=== PATIENT | male | born 1955 | race African-American/Black ===

== ENCOUNTER 2022-04-12 10:19 | Inpatient (IN) | payer OTHER, MEDICAID ==
[~2022-04-12] VITALS: Ht 177.8 cm; Wt 74.4 kg
[2022-04-12 12:13] LABS: BASOPHILS % 0.7 % (0.0-2.0); EOSINOPHILS % 0.6 % (0.0-5.0); HEMATOCRIT. 35.6 % (42.0-52.0); HEMOGLOBIN. 11.7 g/dL (14.0-18.0); LYMPHOCYTES % 7.5 % (20.0-50.0); MEAN CORPUSCULAR HEMOGLOBIN 33.8 pg (28.0-32.0); MEAN CORPUSCULAR VOLUME 102.8 fL (80.0-94.0); MEAN PLATELET VOLUME 8.3 fl (7.4-10.4); MONOCYTES % 9.2 % (2.0-8.0); PLATELET 242 x1000/uL (130-400); RED BLOOD CELL COUNT 3.46 mill/uL (4.7-6.1); RED CELL DISTRIBUTION WIDTH 18.1 % (11.6-14.6)
[2022-04-12] MEDS ORDERED: HYDRALAZINE 20MG/ML VIAL IV ONE (12:15)
[2022-04-12 12:16] LABS: CHLORIDE 109 mEq/L (98-107)
[2022-04-12] MEDS ORDERED: DILTIAZEM HCL 125 MG in DEXT 5% WATER 100 ML IV ONE (13:15)
[2022-04-12] MEDS ORDERED: DILTIAZEM 125MG/125ML PMX 125 ML IV SCH (13:30)
[2022-04-12] MEDS ORDERED: NICARDIPINE 100 MG in SODIUM CHLORIDE 0.9% 60 ML IV STA (13:44)
[2022-04-12] MEDS ORDERED: ACETAMINOPHEN 325MG TABLET PO PRN (13:45)
[2022-04-12] MEDS ORDERED: DIPHENHYDRAMINE 50MG/ML VIAL IV PRN (13:45)
[2022-04-12] MEDS ORDERED: DOCUSATE SODIUM 100MG CAPSULE PO PRN (13:45)
[2022-04-12] MEDS ORDERED: TRAMADOL 50MG TABLET PO PRN (13:45)
[2022-04-12] MEDS ORDERED: ONDANSETRON HCL 4MG/2ML INJ IV PRN (13:45)
[2022-04-12] MEDS ORDERED: NITROGLYCERIN 0.4MG TABLET SL SL PRN (13:45)
[2022-04-12] MEDS ORDERED: IPRATROPIUM/ALBUTEROL 0.5-3(2.5)MG/3ML NEB NEB PRN (13:45)
[2022-04-12] MEDS ORDERED: DIAZEPAM 5 MG/ML 2ML CPJ IV PRN (13:45)
[2022-04-12] MEDS ORDERED: ZOLPIDEM TARTRATE 5MG TABLET PO PRN (13:45)
[2022-04-12] MEDS ORDERED: MAGNESIUM/ALUMINUM HYDROXIDE/SIMETHICONE 30ML UDC PO PRN (13:45)
[2022-04-12] MEDS ORDERED: GUAIFENESIN 200MG/10ML SUGAR FREE UDC PO PRN (13:45)
[2022-04-12] MEDS ORDERED: NICARDIPINE 40MG/200ML PREMIX 200 ML IV SCH (14:00)
[2022-04-12 14:06] LABS: ETHANOL BLOOD < 10 mg/dL; TOTAL IRON BINDING CAPACITY 238 ug/dL (250-450)
[2022-04-12 14:31] LABS: HEPATITIS B SURFACE ANTIGEN NEGATIVE
[2022-04-12 14:47] LABS: CREATINE KINASE MB FRACTION 3.1 ng/mL (0.5-3.6)
[2022-04-12 14:56] LABS: *AMPHETAMINES SCREEN URINE NEGATIVE (NEGATIVE); *BARBITURATES SCREEN URINE NEGATIVE (NEGATIVE); *BENZODIAZEPINES SCREEN URINE NEGATIVE (NEGATIVE); *COCAINE SCREEN URINE PRESUMTIVE POSITIVE (NEGATIVE); CANNABINOID URINE SCREEN NEGATIVE (NEGATIVE); METHADONE URINE SCREEN NEGATIVE (NEGATIVE); OPIATES URINE SCREEN NEGATIVE (NEGATIVE); PHENCYCLIDINE URINE SCREEN NEGATIVE (NEGATIVE)
[2022-04-12] MEDS: LEVETIRACETAM 500MG TABLET PO SCH ×2 (15:56→21:08)
[2022-04-12] MEDS: HYDRALAZINE HCL 50MG TABLET PO SCH ×2 (18:22→21:23)
[2022-04-12] MEDS: NIFEDIPINE XL 60MG TAB PO SCH (18:22)
[2022-04-12] MEDS: SEVELAMER CARBONATE 800 MG TABLET PO SCH (18:23)
[2022-04-12] MEDS: ENOXAPARIN 40MG/0.4ML SYR SUBCUT SCH (18:23)
[2022-04-12] MEDS: FAMOTIDINE 20MG TABLET PO SCH (21:08)
[2022-04-12] MEDS: METOPROLOL TARTRATE 25MG TABLET PO SCH (21:08)
[2022-04-12 22:32] VITALS: BP 188/113
[2022-04-13] VITALS (16 sets, daily range): BP systolic 112–190; BP diastolic 65–132
[2022-04-13] MEDS: CLONIDINE 0.1MG TABLET PO PRN ×2 (00:28→23:53)
[2022-04-13 02:15] LABS: CREATINE KINASE MB FRACTION 3.9 ng/mL (0.5-3.6)
[2022-04-13] MEDS: HYDRALAZINE HCL 50MG TABLET PO SCH ×3 (06:00→22:57)
[2022-04-13 06:07] LABS: CHLORIDE 103 mEq/L (98-107)
[2022-04-13 06:17] LABS: PHOSPHORUS 3.2 mg/dL (2.5-4.9)
[2022-04-13 06:34] LABS: BASOPHILS % 0.8 % (0.0-2.0); EOSINOPHILS % 1.2 % (0.0-5.0); HEMATOCRIT. 37.4 % (42.0-52.0); HEMOGLOBIN. 12.4 g/dL (14.0-18.0); LYMPHOCYTES % 9.6 % (20.0-50.0); MEAN CORPUSCULAR HEMOGLOBIN 33.7 pg (28.0-32.0); MEAN CORPUSCULAR VOLUME 101.5 fL (80.0-94.0); MEAN PLATELET VOLUME 7.9 fl (7.4-10.4); MONOCYTES % 11.7 % (2.0-8.0); NEUTROPHILS % 76.7 % (40.0-76.0); PLATELET 240 x1000/uL (130-400); RED BLOOD CELL COUNT 3.69 mill/uL (4.7-6.1); RED CELL DISTRIBUTION WIDTH 17.8 % (11.6-14.6)
[2022-04-13] MEDS: ASPIRIN 81MG EC TABLET PO SCH (08:46)
[2022-04-13] MEDS: SEVELAMER CARBONATE 800 MG TABLET PO SCH ×3 (08:46→17:19)
[2022-04-13] MEDS: NIFEDIPINE XL 60MG TAB PO SCH (08:46)
[2022-04-13] MEDS: METOPROLOL TARTRATE 25MG TABLET PO SCH (08:46)
[2022-04-13] MEDS: ACETAMINOPHEN 325MG TABLET PO PRN ×2 (08:47→22:56)
[2022-04-13] MEDS: LEVETIRACETAM 500MG TABLET PO SCH ×2 (08:47→21:22)
[2022-04-13] MEDS ORDERED: ASPIRIN 325MG EC TABLET PO SCH (09:00)
[2022-04-13] MEDS: CARVEDILOL 12.5MG TABLET PO SCH ×2 (11:41→21:22)
[2022-04-13] MEDS: ISOSORBIDE MONONITRATE 30MG TABLET SR 24HR PO SCH (11:41)
[2022-04-13] MEDS: ENOXAPARIN 40MG/0.4ML SYR SUBCUT SCH (17:19)
[2022-04-13] MEDS ORDERED: NALOXONE HCL 0.4MG/ML VIAL IV PRN (18:15)
[2022-04-13] MEDS: FAMOTIDINE 20MG TABLET PO SCH (21:22)
[2022-04-14] VITALS (12 sets, daily range): BP systolic 119–193; BP diastolic 82–120
[2022-04-14] MEDS: HYDRALAZINE HCL 50MG TABLET PO SCH (06:16)
[2022-04-14 06:23] LABS: HEMOGLOBIN. 12.2 g/dL (14.0-18.0); MEAN CORPUSCULAR HEMOGLOBIN 33.9 pg (28.0-32.0); MEAN CORPUSCULAR VOLUME 102.4 fL (80.0-94.0); MEAN PLATELET VOLUME 7.3 fl (7.4-10.4); PLATELET 247 x1000/uL (130-400); RED BLOOD CELL COUNT 3.61 mill/uL (4.7-6.1); RED CELL DISTRIBUTION WIDTH 17.8 % (11.6-14.6)
[2022-04-14 06:38] LABS: PHOSPHORUS 4.4 mg/dL (2.5-4.9)
[2022-04-14] MEDS ORDERED: CLONIDINE 0.3MG TABLET PO SCH (08:00)
[2022-04-14] MEDS ORDERED: ENOXAPARIN 30MG/0.3ML SYR SUBCUT SCH (09:00)
[2022-04-14 09:02] LABS: NUCLEATED RED BLOOD CELLS 2 /100 WBC; PLATELET ESTIMATE NORMAL
[2022-04-14] MEDS: ASPIRIN 81MG EC TABLET PO SCH (11:15)
[2022-04-14] MEDS: LEVETIRACETAM 500MG TABLET PO SCH (11:16)
[2022-04-14] MEDS: SEVELAMER CARBONATE 800 MG TABLET PO SCH ×2 (11:16→13:00)
[2022-04-14] MEDS: ISOSORBIDE MONONITRATE 30MG TABLET SR 24HR PO SCH (11:16)
[2022-04-14] MEDS: CARVEDILOL 12.5MG TABLET PO SCH (11:16)
[2022-04-14] MEDS: NIFEDIPINE XL 60MG TAB PO SCH (11:17)
[2022-04-14] MEDS ORDERED: HYDRALAZINE HCL 50MG TABLET PO SCH (14:00)
== END 2022-04-14 19:00 | disposition short-term general hospital (02) | DRG 917 ==
LOC: ER 10:19 → 5EST 13:34 → EDBEDREQ 14:05 → EDBEDREQSVC 14:05 → EDBEDREQTM 14:05 → ENRESERV 21:17
PROVIDERS: ADMIT Internal Medicine; ATTEND Internal Medicine
PROC: 5A1D70Z Performance of Urinary Filtration, Intermittent, Less than 6 Hours Per Day (ICD-10-PCS; principal; 2022-04-12)
DX: T40.5X1A Poisoning by cocaine, accidental (unintentional), initial encounter (principal); I21.4 Non-ST elevation (NSTEMI) myocardial infarction; N18.6 End stage renal disease; I16.1 Hypertensive emergency; I13.2 Hypertensive heart and chronic kidney disease with heart failure and with stage 5 chronic kidney disease, or end stage renal disease; Z20.822 Contact with and (suspected) exposure to COVID-19; E87.5 Hyperkalemia; D63.1 Anemia in chronic kidney disease; E78.5 Hyperlipidemia, unspecified; G40.909 Epilepsy, unspecified, not intractable, without status epilepticus; I50.9 Heart failure, unspecified; Z91.15 Patient's noncompliance with renal dialysis; Z99.2 Dependence on renal dialysis; Z79.82 Long term (current) use of aspirin; Z82.49 Family history of ischemic heart disease and other diseases of the circulatory system; Z95.2 Presence of prosthetic heart valve
CPT/HCPCS: 36415; 71045; 80048; 80053; 80061; 80305; 80320; 82550; 82553; 82607; 82746; 83036; 83540; 83550; 83735; 83880; 84100; 84484; 85025; 86705; 86709; 86803; 87340; 87426; 93005; 93306; 93970; 99291; J0360; J1650; J3490; J7050; J7060; G0480

== ENCOUNTER 2023-01-23 15:04 | Emergency (ER) | payer OTHER, MEDICAID ==
[~2023-01-23] VITALS: Ht 182.9 cm; Wt 82.0 kg
[2023-01-23 15:06] VITALS: BP 180/90; PULSE 86; RESP 16; TEMP 98.5; O2SAT 98
[2023-01-23] MEDS ORDERED: OXYMETAZOLINE HCL NASAL SPRAY 15ML BOTHNSTRLS STA (15:41)
[2023-01-23] MEDS ORDERED: CLONIDINE 0.1MG TABLET PO ONE (16:15)
[2023-01-23 16:21] LABS: HEMATOCRIT. 32.3 % (42.0-52.0); HEMOGLOBIN. 10.9 g/dL (14.0-18.0); MEAN CORPUSCULAR HEMOGLOBIN 32.2 pg (28.0-32.0); MEAN CORPUSCULAR VOLUME 95.6 fL (80.0-94.0); MEAN PLATELET VOLUME 7.9 fl (7.4-10.4); PLATELET 142 x1000/uL (130-400); RED BLOOD CELL COUNT 3.37 mill/uL (4.7-6.1); RED CELL DISTRIBUTION WIDTH 16.9 % (11.6-14.6)
[2023-01-23] MEDS ORDERED: SODI88SP18 BOTHNSTRLS (17:59)
[2023-01-23 18:11] LABS: PLATELET ESTIMATE NORMAL
[2023-01-24] MEDS ORDERED: NIFE-32 MT (17:48)
[2023-01-24] MEDS ORDERED: HYDR100T26 MT (17:48)
== END 2023-01-23 18:22 | disposition home or self-care (01) ==
LOC: ER 15:04
DX: R04.0 Epistaxis (principal); I10 Essential (primary) hypertension; Z98.890 Other specified postprocedural states; Z86.59 Personal history of other mental and behavioral disorders
CPT/HCPCS: 30901; 36415; 80048; 85025; 99283

== ENCOUNTER 2023-01-25 17:05 | Emergency (ER) | payer OTHER, MEDICAID ==
[~2023-01-25] VITALS: Ht 177.8 cm; Wt 73.0 kg
[~2023-01-25 17:05] MED LIST: HYDR100T26 MT; NIFE-32 MT; SODI88SP18 BOTHNSTRLS
[2023-01-25 17:21] VITALS: BP 178/108; PULSE 66; RESP 16; TEMP 98.3; O2SAT 99
[2023-01-25] MEDS ORDERED: NIFEDIPINE XL 60MG TAB PO ONE (18:45)
[2023-01-25] MEDS ORDERED: HYDRALAZINE HCL 50MG TABLET PO ONE (18:45)
== END 2023-01-25 18:59 | disposition left against medical advice (07) ==
LOC: ER 17:05
DX: R04.0 Epistaxis (principal); I12.0 Hypertensive chronic kidney disease with stage 5 chronic kidney disease or end stage renal disease; E11.22 Type 2 diabetes mellitus with diabetic chronic kidney disease; N18.6 End stage renal disease
CPT/HCPCS: 99281